=== PATIENT | male | born 1980 | race Caucasian/White ===

== ENCOUNTER 2024-02-20 11:35 | Emergency (ER) | payer OTHER ==
[~2024-02-20] VITALS: Ht 177.8 cm; Wt 77.5 kg
[2024-02-20] MEDS ORDERED: LOSARTAN-HCTZ1 EAC2 PO (11:55)
[2024-02-20] MEDS ORDERED: GABAPENTIN600 MG PO (11:55)
[2024-02-20] MEDS ORDERED: BUPRENORPHINE HC8 MG SL (11:55)
[2024-02-20] MEDS ORDERED: AMLODIPINE BESYL5 MG PO (11:55)
[2024-02-20] MEDS ORDERED: DULOXETINE HCL60 MG PO (11:55)
[2024-02-20 12:24] LABS: ALBUMIN 3.8 g/dL (3.4-5.0); ALBUMIN/GLOBULIN RATIO 1.19 (1.1-2.4); ANION GAP 11.4 (7-21); BILIRUBIN, TOTAL 0.7 ng/dL (0.2-1.0); BUN/CREATININE RATIO 12.22 (6.0-28.6); CALCIUM 9.1 mg/dL (8.5-10.1); CREATININE, SERUM 0.9 mg/dL (0.70-1.30); POTASSIUM 3.4 mmol/L (3.5-5.1)
[2024-02-20 14:29] VITALS: BP 119/73
--- NOTE | 2024-02-22 19:37 | EKG ---
[facility] [address] [facility] [place] [address] Signed Normal sinus rhythm with sinus arrhythmia Normal ECG No previous ECGs available Confirmed by Mik Valerio MD ([id number]) on 02/22/2024 7:37:30 PM Electronically Signed By: MIK VALERIO MD 02/22/241936 PATIENT NAME: MIKE ORTIZ Electrocardiogram DATE OF : 80 PHYSICIAN: MIK VALERIO MD REPORT #: [id number] REPORT IS CONFIDENTIAL AND NOT TO BE RELEASED WITHOUT AUTHORIZATION
== END 2024-02-20 14:29 | disposition home or self-care (01) ==
LOC: ED 11:35
PROVIDERS: Emergency Medicine
DX: T75.4XXA Electrocution, initial encounter (principal); W86.1XXA Exposure to industrial wiring, appliances and electrical machinery, initial encounter; Z79.899 Other long term (current) drug therapy
CPT/HCPCS: 36415; 80053; 82553; 99283